=== PATIENT | male | born 1965 | race African-American/Black ===

== ENCOUNTER 2021-11-28 10:17 | Inpatient (IN) | payer OTHER ==
[2021-11-28 10:48] VITALS: BMI 34.5
[2021-11-28] MEDS ORDERED: ONDANSETRON *ODT* 4 MG TABLET SL PRN (11:24)
[2021-11-28] MEDS ORDERED: NALOXONE HCL (KLOXXADO) 8 MG SPRAY NS PRN (11:24)
[2021-11-28] MEDS ORDERED: LOPERAMIDE HCL 2 MG CAPSULE PO PRN (11:24)
[2021-11-28] MEDS ORDERED: ACETAMINOPHEN 325 MG TABLET (FP) PO PRN (11:24)
[2021-11-28] MEDS ORDERED: MAG HYDROX/AL HYDROX/SIMETH 30 ML UNIT-DOSE CUP PO PRN (11:24)
[2021-11-28] MEDS ORDERED: MAGNESIUM CITRATE 300 ML BOTTLE PO PRN (11:24)
[2021-11-28] MEDS ORDERED: BISMUTH SUBSALICYLATE 262 MG/15 ML BTL PO PRN (11:24)
[2021-11-28] MEDS ORDERED: DICYCLOMINE HCL 10 MG CAPSULE PO PRN (11:24)
[2021-11-28] MEDS ORDERED: methaDONE HCL 10 MG TABLET (FOR DETOX USE ONLY) PO ONE (11:24)
[2021-11-28] MEDS ORDERED: NICOTINE 10 MG CARTRIDGE (INHALER) IH PRN (11:24)
[2021-11-28] MEDS ORDERED: MAGNESIUM HYDROX 2400MG/30ML ORAL SUSPENSION 30 ML CUP PO PRN (11:24)
[2021-11-28] MEDS ORDERED: BENZOCAINE/MENTHOL (CHLORASEPTIC ) LOZENGE MM PRN (11:24)
[2021-11-28] MEDS ORDERED: cloNIDine HCL 0.1 MG TABLET ONE (12:34)
[2021-11-28] MEDS: cloNIDine HCL 0.1 MG TABLET PO PRN ×2 (12:36→20:56)
[2021-11-28] MEDS: IBUPROFEN 600 MG TABLET (FP) PO PRN ×2 (13:13→20:53)
[2021-11-28] MEDS: METHOCARBAMOL 500 MG TABLET PO PRN ×2 (13:13→20:53)
[2021-11-28] MEDS: hydrOXYzine PAMOATE 25 MG CAPSULE (FP) PO PRN (13:13)
[2021-11-28] MEDS: diazePAM 5 MG TABLET PO PRN ×2 (13:57→20:56)
[2021-11-28 18:23] LABS: HEMATOCRIT 39.3 % (35.4-49); HEMOGLOBIN 13.4 GM/dL (11.7-16.9); MCH 30.2 pg (25.7-33.7); MCHC 34.1 g/dl (32.0-35.9); MEAN CELL VOLUME 88.6 fl (80-96); MEAN PLT VOLUME 9.5 fl (7.5-11.1); PLATELET COUNT 240 10^3/uL (134-434); RBC 4.43 M/mm3 (4.00-5.60); RDW 14.5 % (11.9-15.9); WHITE BLOOD COUNT 5.6 K/mm3 (4.0-10.0)
[2021-11-28 18:31] LABS: CALCIUM 9.3 mg/dL (8.5-10.1)
[2021-11-28 18:32] LABS: ALBUMIN 4.2 g/dl (3.4-5.0); BLOOD UREA NITROGEN 12.3 mg/dL (7-18)
[2021-11-28 18:36] LABS: BILIRUBIN,TOTAL 0.4 mg/dL (0.2-1); CREATININE 0.8 mg/dL (0.55-1.3); TOT PROT 7.6 g/dl (6.4-8.2)
[2021-11-28] MEDS: THIAMINE HCL 100 MG TABLET (FP) PO SCH (21:00)
[2021-11-28] MEDS: SUVOREXANT 10 MG TABLET PO PRN (22:00)
[2021-11-28] MEDS ORDERED: MELATONIN 5 MG TABLETS PO SCH (22:00)
[2021-11-29] MEDS: hydrOXYzine PAMOATE 25 MG CAPSULE (FP) PO PRN ×2 (00:39→10:49)
[2021-11-29] MEDS: IBUPROFEN 400 MG TABLET (FP) PO PRN (00:56)
[2021-11-29] MEDS: cloNIDine HCL 0.1 MG TABLET PO PRN ×4 (00:56→17:09)
[2021-11-29] MEDS: diazePAM 5 MG TABLET PO PRN ×4 (00:57→21:00)
[2021-11-29] MEDS: ACETAMINOPHEN 325 MG TABLET (FP) PO PRN (00:57)
[2021-11-29] MEDS: IBUPROFEN 600 MG TABLET (FP) PO PRN ×3 (04:20→17:09)
[2021-11-29] MEDS: METHOCARBAMOL 500 MG TABLET PO PRN ×2 (04:20→17:09)
[2021-11-29] MEDS: PRENATAL VITAMINS W/ FOLIC ACID TABLET (FP) PO SCH (10:51)
[2021-11-29] MEDS: NICOTINE 14 MG/24 HOURS TOPICAL PATCH TD SCH (10:51)
[2021-11-29] MEDS: LIDOCAINE 5% TOPICAL PATCH TP SCH (19:12)
[2021-11-29] MEDS: THIAMINE HCL 100 MG TABLET (FP) PO SCH (22:20)
[2021-11-29] MEDS: SUVOREXANT 10 MG TABLET PO PRN (22:21)
[2021-11-29] MEDS: LIDOCAINE PATCH REMOVAL MC SCH (22:21)
[2021-11-30] MEDS: diazePAM 5 MG TABLET PO PRN ×3 (01:11→21:32)
[2021-11-30] MEDS: cloNIDine HCL 0.1 MG TABLET PO PRN ×3 (01:11→21:32)
[2021-11-30] MEDS: METHOCARBAMOL 500 MG TABLET PO PRN ×3 (01:11→22:18)
[2021-11-30] MEDS: hydrOXYzine PAMOATE 25 MG CAPSULE (FP) PO PRN ×3 (03:40→22:18)
[2021-11-30] MEDS ORDERED: methaDONE HCL 10 MG TABLET (FOR DETOX USE ONLY) PO ONE (10:00)
[2021-11-30] MEDS: LIDOCAINE 5% TOPICAL PATCH TP SCH (10:25)
[2021-11-30] MEDS: IBUPROFEN 400 MG TABLET (FP) PO PRN (10:26)
[2021-11-30] MEDS: amLODIPine BESYLATE 10 MG TABLET (FP) PO SCH (10:26)
[2021-11-30] MEDS: NICOTINE 14 MG/24 HOURS TOPICAL PATCH TD SCH (10:27)
[2021-11-30] MEDS: PRENATAL VITAMINS W/ FOLIC ACID TABLET (FP) PO SCH (10:27)
[2021-11-30] MEDS: THIAMINE HCL 100 MG TABLET (FP) PO SCH (22:15)
[2021-11-30] MEDS: LIDOCAINE PATCH REMOVAL MC SCH (22:16)
[2021-11-30] MEDS: SUVOREXANT 10 MG TABLET PO PRN (22:18)
[2021-12-01] MEDS: hydrOXYzine PAMOATE 25 MG CAPSULE (FP) PO PRN ×2 (01:14→10:08)
[2021-12-01] MEDS: IBUPROFEN 400 MG TABLET (FP) PO PRN (01:15)
[2021-12-01] MEDS: diazePAM 5 MG TABLET PO PRN (01:15)
[2021-12-01] MEDS: ACETAMINOPHEN 325 MG TABLET (FP) PO PRN (02:56)
[2021-12-01] MEDS ORDERED: BENZOCAINE 20 % GEL TUBE MM PRN (09:45)
[2021-12-01] MEDS: amLODIPine BESYLATE 10 MG TABLET (FP) PO SCH (10:08)
[2021-12-01] MEDS: METHOCARBAMOL 500 MG TABLET PO PRN (10:08)
[2021-12-01] MEDS: PRENATAL VITAMINS W/ FOLIC ACID TABLET (FP) PO SCH (10:08)
[2021-12-01] MEDS: LIDOCAINE 5% TOPICAL PATCH TP SCH (10:10)
[2021-12-01] MEDS: NICOTINE 14 MG/24 HOURS TOPICAL PATCH TD SCH (10:11)
[2021-12-01] MEDS ORDERED: cloNIDine HCL 0.1 MG TABLET PO ONE (20:14)
[2021-12-01] MEDS: THIAMINE HCL 100 MG TABLET (FP) PO SCH (22:11)
[2021-12-01] MEDS: SUVOREXANT 10 MG TABLET PO PRN (22:12)
[2021-12-01] MEDS: LIDOCAINE PATCH REMOVAL MC SCH (23:43)
[2021-12-02] MEDS: METHOCARBAMOL 500 MG TABLET PO PRN ×2 (01:14→07:06)
[2021-12-02] MEDS: IBUPROFEN 400 MG TABLET (FP) PO PRN ×2 (01:14→09:17)
[2021-12-02] MEDS: hydrOXYzine PAMOATE 25 MG CAPSULE (FP) PO PRN ×2 (01:16→09:16)
[2021-12-02] MEDS: amLODIPine BESYLATE 10 MG TABLET (FP) PO SCH (09:16)
[2021-12-02] MEDS: NICOTINE 14 MG/24 HOURS TOPICAL PATCH TD SCH (09:17)
[2021-12-02] MEDS: PRENATAL VITAMINS W/ FOLIC ACID TABLET (FP) PO SCH (09:18)
[2021-12-02] MEDS: LIDOCAINE 5% TOPICAL PATCH TP SCH (09:18)
[2021-12-02] MEDS ORDERED: methaDONE HCL 10 MG TABLET (FOR DETOX USE ONLY) PO ONE (10:00)
[2021-12-02 18:26] VITALS: RESP 18
[2021-12-02] MEDS: THIAMINE HCL 100 MG TABLET (FP) PO SCH (21:56)
[2021-12-02] MEDS: SUVOREXANT 10 MG TABLET PO PRN (21:57)
[2021-12-02] MEDS: LIDOCAINE PATCH REMOVAL MC SCH (22:18)
[2021-12-03] MEDS: METHOCARBAMOL 500 MG TABLET PO PRN (05:22)
[2021-12-03 09:06] VITALS: BP 132/91; PULSE 83; TEMP 98
[2021-12-03] MEDS: LIDOCAINE 5% TOPICAL PATCH TP SCH (10:21)
[2021-12-03] MEDS: NICOTINE 14 MG/24 HOURS TOPICAL PATCH TD SCH (10:21)
[2021-12-03] MEDS: PRENATAL VITAMINS W/ FOLIC ACID TABLET (FP) PO SCH (10:21)
[2021-12-03] MEDS: amLODIPine BESYLATE 10 MG TABLET (FP) PO SCH (10:31)
== END 2021-12-03 09:45 | disposition home or self-care (01) | DRG 773 ==
LOC: YASAS 10:17 → Y6N 12:31
PROVIDERS: ADMIT Allergy & Immunology; ATTEND Surgery
PROC: HZ2ZZZZ Detoxification Services for Substance Abuse Treatment (ICD-10-PCS; principal; 2021-11-28)
DX: F11.23 Opioid dependence with withdrawal (principal); F13.20 Sedative, hypnotic or anxiolytic dependence, uncomplicated; F17.210 Nicotine dependence, cigarettes, uncomplicated; F19.282 Other psychoactive substance dependence with psychoactive substance-induced sleep disorder; F19.280 Other psychoactive substance dependence with psychoactive substance-induced anxiety disorder; F19.24 Other psychoactive substance dependence with psychoactive substance-induced mood disorder; F31.9 Bipolar disorder, unspecified; R45.851 Suicidal ideations; I69.851 Hemiplegia and hemiparesis following other cerebrovascular disease affecting right dominant side; M48.00 Spinal stenosis, site unspecified; M54.50 Low back pain, unspecified; G89.29 Other chronic pain; Z99.89 Dependence on other enabling machines and devices
CPT/HCPCS: 36415; 80053; 85027; 86780; C9803-CS; U0003; U0005